=== PATIENT | female | born 1950 | race Caucasian/White ===

== ENCOUNTER 2022-07-13 10:42 | Outpatient (CLI) | payer MEDICARE | END 2022-07-13 23:59 | disposition home or self-care (01) | LOC: CARD DIAG 10:42 | PROVIDERS: ATTEND Internal Medicine Cardiovascular Disease | DX: I05.9 Rheumatic mitral valve disease, unspecified (principal); R06.02 Shortness of breath | CPT/HCPCS: 93306 ==